=== PATIENT | female | born 1980 | race Caucasian/White ===

== ENCOUNTER 2016-10-07 | Outpatient (CLI) | payer SELFPAY | END 2016-10-07 14:40 | disposition EMS.NT ==

== ENCOUNTER 2017-02-11 00:47 | Outpatient (CLI) | payer MEDICAID | END 2017-02-11 00:48 | disposition critical access hospital (66) | LOC: EMS 00:47 | PROVIDERS: ATTEND Surgery | DX: R46.89 Other symptoms and signs involving appearance and behavior (principal); R06.00 Dyspnea, unspecified | CPT/HCPCS: A0425; A0429 ==

== ENCOUNTER 2017-02-11 01:13 | Emergency (ER) | payer MEDICAID ==
--- NOTE | 2017-02-11 02:25 | ED Physician Documentation ---
PD HPI SEIZURE - Stated complaint Stated Complaint: SZ - Chief complaint Chief Complaint: Neuro - History obtained from History obtained from: Patient - History of Present Illness Timing - onset: Enter time (23:00) Witnessed: Witnessed Number of seizures: Multiple, Lasted minutes Description of seizure activity: Generalized Injury during seizure: None Pain level now: 0 Associated symptoms: None History of seizures: Known seizure disorder Contributing factors: Out of meds Similar symptoms before: Diagnosis (epilepsy) Recently seen: Not recently seen Review of Systems Eyes: reports: Reviewed and negative Cardiac: reports: Reviewed and negative Respiratory: reports: Reviewed and negative GI: reports: Reviewed and negative PD PAST MEDICAL HISTORY - Past Medical History Past Medical History: Yes Neuro: Seizure disorder - Past Surgical History Past Surgical History: No - Present Medications Home Medications: Ambulatory Orders Medication Instructions Recorded Confirmed Albuterol Sulf [Ventolin Hfa 1 - 2 puffs INH Q4HR PRN #1 inhaler 02/11/17 Inhaler] carBAMazepine [TEGretol] 200 mg PO BID #60 tablet 02/11/17 - Allergies Allergies/Adverse Reactions: Allergies Allergy/AdvReac Type Severity Reaction Status Date / Time codeine Allergy Anaphylaxis Verified 02/11/17 02:42 Penicillins Allergy Anaphylaxis Verified 02/11/17 02:42 PD ED PE NORMAL - Vitals Vital signs reviewed: Yes - General General: Alert and oriented X 3, No acute distress, Well developed/nourished - HEENT HEENT: PERRL, EOMI, Moist mucous membranes, Other (no tongue laceration or echymosis) - Cardiac Cardiac: RRR, No murmur - Respiratory Respiratory: No respiratory distress, Clear bilaterally - Derm Derm: Normal color, Warm and dry - Neuro Neuro: Alert and oriented X 3, 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 She is confident the events tonight are c/w her previous seizures; s.o. says patient had multiple seizures tonight. Patient requests discharge without testing, which is reasonable considering seizure history and off AED for months , unremarkable exam at the time of my evaluation. Given dose of tegretol with Rx for same Departure - Departure Disposition: 01 Home, Self Care Clinical Impression: Seizure Condition: Good Instructions: ED Seizure Recurrent Follow-Up: [facility] [Provider Group] [facility] [Provider Group] Prescriptions: Albuterol Sulf [Ventolin Hfa Inhaler] 1 - 2 puffs INH Q4HR PRN #1 inhaler PRN Reason: Shortness Of Air/Wheezing carBAMazepine [TEGretol] 200 mg PO BID #60 tablet Forms: Activity restrictions Discharge Date/Time: 02/11/17 03:05
[2017-02-11] MEDS: carBAMazepine 200 MG TABLET PO STA (02:58)
[2017-02-11 03:04] VITALS: BP 117/71
== END 2017-02-11 03:05 | disposition home or self-care (01) ==
LOC: EDBD → EDUNIT# → ED 01:13
DX: G40.909 Epilepsy, unspecified, not intractable, without status epilepticus (principal)
CPT/HCPCS: 99283